=== PATIENT | male | born 1975 | race Two or more races ===

== ENCOUNTER 2018-07-09 10:47 | Emergency (ER) | payer SELFPAY ==
[~2018-07-09] VITALS: Ht 167.6 cm; Wt 77.1 kg
--- NOTE | 2018-07-09 13:12 | NUR ---
PT BROUGHT IN BY [facility]AMEDICS FOR ETOH INTOXICATION. PT RESPONSIVE BUT SLURRYS SPEECH AND UNSTABLE WITH GAIT WILL CONTINUE TO MONITOR.
--- NOTE | 2018-07-09 16:24 | NUR ---
ATTEPMTED TO WALK BUT PT UNSTEADY GAIT RETURNED TO BED TOLD PT HAS TO SLEEP MD AWARE. PT UNSAFE TO GO HOME
[2018-07-09 17:32] VITALS: BP 125/69
--- NOTE | 2018-07-09 17:33 | NUR ---
PT DISCHARGED TO HOME WALKED WITH STEADY GAIT GIVEN ACI
== END 2018-07-09 17:33 | disposition home or self-care (01) ==
LOC: ER 10:49
DX: F10.129 Alcohol abuse with intoxication, unspecified (principal); Z59.0 Homelessness; Y90.9 Presence of alcohol in blood, level not specified
CPT/HCPCS: 70450-TC